=== PATIENT | male | born 1985 | race Caucasian/White ===

== ENCOUNTER 2019-10-11 23:20 | Emergency (ER) | payer MEDICAID ==
[~2019-10-11] VITALS: Ht 193 cm; Wt 87.3 kg
[2019-10-11] MEDS ORDERED: ipratropium/albuterol 3ml nebule NEB ONE (23:30)
[2019-10-11] MEDS ORDERED: ALBU90AE INH (23:36)
[2019-10-12 00:40] VITALS: BP 137/91
== END 2019-10-12 00:44 | disposition home or self-care (01) ==
LOC: ER 23:21
DX: J44.1 Chronic obstructive pulmonary disease with (acute) exacerbation (principal); F17.200 Nicotine dependence, unspecified, uncomplicated; F15.90 Other stimulant use, unspecified, uncomplicated; Z79.899 Other long term (current) drug therapy
CPT/HCPCS: 71045; 94640; 94760; 99283

== ENCOUNTER 2019-10-16 17:36 | Emergency (ER) | payer MEDICAID ==
[~2019-10-16] VITALS: Ht 193 cm; Wt 113.0 kg
[~2019-10-16 17:36] MED LIST: ALBU90AE INH
[2019-10-16 18:39] LABS: ALANINE AMINOTRANSFERASE 166 U/L (12-78); ALBUMIN 4.4 G/DL (3.4-5.0); ALKALINE PHOSPHATASE 72 IU/L (46-116); ANION GAP 22 (8-16); ASPARTATE AMINO TRANSFERASE 123 U/L (10-37); BLOOD UREA NITROGEN 19 MG/DL (7-18); CALCIUM 9.8 MG/DL (8.5-10.1); CHLORIDE 98 MMOL/L (99-107); CREATININE 2.37 MG/DL (0.60-1.10); GLUCOSE 136 MG/DL (70-104); LIPASE 319 U/L (73-393); POTASSIUM 3.6 MMOL/L (3.5-5.1); SODIUM 138 MMOL/L (135-145); TOTAL CARBON DIOXIDE 18.2 MMOL/L (24-32); TOTAL PROTEIN 8.9 G/DL (6.4-8.2); eGFR 31 ML/MIN
[2019-10-16 19:02] LABS: BASOPHILS % (AUTO) 0.2 % (0-1); EOSINOPHILS % (AUTO) 0.3 % (0-6); HEMATOCRIT 51.2 % (42.0-52.0); HEMOGLOBIN 17.4 g/dl (14.0-17.9); LYMPHOCYTES # (AUTO) 1.5 X10'3 (1.1-4.8); LYMPHOCYTES % (AUTO) 11.3 % (21-51); MEAN CORPUSCULAR HEMOGLOBIN 32.4 PG (27.0-31.0); MEAN CORPUSCULAR HGB CONC 34.1 g/dL (33.0-36.5); MEAN CORPUSCULAR VOLUME 94.9 FL (78-98); MEAN PLATELET VOLUME 7.3 FL (7.4-10.4); MONOCYTES # (AUTO) 1.2 X10'3 (0-0.9); MONOCYTES % (AUTO) 9.4 % (2-12); NEUTROPHILS # (AUTO) 10.1 X10'3 (1.8-7.7); NEUTROPHILS % (AUTO) 78.8 % (42-75); PLATELET COUNT 354 X10'3 (140-440); RED BLOOD COUNT 5.39 X10'6 (4.70-6.10); RED CELL DISTRIBUTION WIDTH 13.6 % (11.5-14.5); WHITE BLOOD COUNT 12.9 X10'3 (4.5-11.0)
[2019-10-16] MEDS ORDERED: dextrose 5%-normal saline 1,000 ML IV SCH (19:55)
[2019-10-16] MEDS ORDERED: diazepam 5mg tablet PO ONE ×2 (20:05→20:35)
[2019-10-16] MEDS ORDERED: normal saline 1000ml 1,000 ML IV ONE (20:05)
[2019-10-16] MEDS ORDERED: ondansetron/PF 4mg/2ml inj IV ONE (20:35)
--- NOTE | 2019-10-16 20:35 | NUR ---
DR. KNAPP MADE AWARE PT VOMITED AFTER RECEIVING PO VALIUM. MADE AWARE PARTIALLY DISSOLVED VALIUM WAS OBSERVED ON THE FLOOR. DR. KNAPP TO ORDER ZOFRAN IVP AND REPEAT VALIUM WHEN NAUSEA SUBSIDES.
[2019-10-16] MEDS ORDERED: CHLO25CA10 PO (20:48)
[2019-10-16 21:57] VITALS: BP 128/65
== END 2019-10-16 21:55 | disposition home or self-care (01) ==
LOC: ER 17:37
DX: F10.239 Alcohol dependence with withdrawal, unspecified (principal); J44.9 Chronic obstructive pulmonary disease, unspecified; F15.90 Other stimulant use, unspecified, uncomplicated; E86.0 Dehydration; R56.9 Unspecified convulsions; R53.1 Weakness; Z79.899 Other long term (current) drug therapy; Y90.0 Blood alcohol level of less than 20 mg/100 ml
CPT/HCPCS: 36415; 80053; 83690; 85025; 96361; 96374; 96375; 99284; J2405; J7030; J7042; 96365